=== PATIENT | female | born 1930 | race Caucasian/White ===

== ENCOUNTER 2020-08-13 17:11 | Emergency (ER) | payer MEDICARE ==
[~2020-08-13] VITALS: Ht 162.6 cm; Wt 62.3 kg
--- NOTE | 2020-08-13 17:54 | PHYS DOC ---
Past History Past Medical History: Arthritis, Hypertension General Adult EDM: Chief Complaint: CHEST PAIN HPI: HPI: ".. I was just in to see my doctor.. and they sent me down here.. " " They got all worried about my chest pain complaints..." Patient is a 89 year old female who presents with above hx and complaints of central chest pain and fatigue. Pt. has had symptoms off and on the last 5 d ays. Describes pain as pressure. Patient does have a history of hypertension and is unsure if she took her blood pressure meds today no history of travel or specific ill contacts. Normally follows with in [place], [place]. Patient describes currently the discomfort in center chest. Describes more of a dull ache in sharp pain. No history of trauma. No history of travel outside the [place] area. No history immunosuppression. No history specific ill contacts. Review of Systems: Review of Systems: Constitutional: Denies fever or chills Eyes: Denies change in visual acuity HENT: Denies nasal congestion or sore throat Respiratory: Denies cough or shortness of breath Cardiovascular: Complaints of chest pain GI: Denies abdominal pain, nausea, vomiting, bloody stools or diarrhea : Denies dysuria Musculoskeletal: Denies back pain or joint pain Integument: Denies rash Neurologic: Denies headache, focal weakness or sensory changes Endocrine: Denies polyuria or polydipsia Lymphatic: Denies swollen glands Psychiatric: Denies depression or anxiety Heart Score: HEART Score for Chest Pain: HEART Score for Chest Pain Response (Comments) Value History Moderately Suspicious 1 ECG Nonspecific Repolarizatio 1 Age > 65 2 Risk Factors 1 or 2 Risk Factors 1 Total 5 Risk Factors: Risk Factors: DM, Current or recent (<one month) smoker, HTN, HLP, family history of CAD, obesity. Risk Scores: Score 0 - 3: 2.5% MACE over next 6 weeks - Discharge Home Score 4 - 6: 20.3% MACE over next 6 weeks - Admit for Clinical Observation Score 7 - 10: 72.7% MACE over next 6 weeks - Early Invasive Strategies Family History: Family History: Noncontributory to presentation Current Medications: Current Meds: See nursing for home meds Allergies: Allergies: No known drug allergies Physical Exam: PE: Constitutional: Moderate acute distress, non-toxic appearance. [] HENT: Normocephalic, atraumatic, bilateral external ears normal, oropharynx moist, no oral exudates, nose normal. [] Eyes: PERRLA, EOMI, conjunctiva normal, no discharge. Glasses Neck: Normal range of motion, no tenderness, supple, no stridor. [] Cardiovascular:Heart rate regular rhythm, no murmur, PMI to the left Lungs & Thorax: Bilateral breath sounds equal apex on auscultation [] Abdomen: Bowel sounds normal, soft, no tenderness, no masses, no pulsatile masses. [] Skin: Warm, dry, no erythema, no rash. Poor turgor Back: No tenderness, no CVA tenderness. [] Extremities: No tenderness, no cyanosis, no clubbing, ROM intact, no edema. A rthritic changes. No cording appreciated Neurologic: Alert and oriented X 3, moves extremities on request, has distal sensory,, no focal deficits noted. [] Psychologic: Affect anxious but irritated, judgement normal, mood normal. [] EKG: EKG: My interpretation EKG shows a sinus rhythm at 75 bpm. No findings of acute STEMI with contralateral changes [] Radiology/Procedures: Radiology/Procedures: [][place] [address] IMAGING REPORT Signed PATIENT: RONAL SUAREZ ACCOUNT: [id number] : 1930 LOCATION: ER AGE: 89 SEX: F EXAM STATUS: REG ER ORD. PHYSICIAN: CELESTINA RANGEL DO REASON: cp PROCEDURE: PORTABLE CHEST 1V PORTABLE CHEST 1V History: Reason: cp / Spl. Instructions: / History: Comparison: None. Findings: No consolidation or pleural effusion. Normal heart size. No pneumothorax. Impression: 1. No acute cardiopulmonary process. Electronically signed by: Tayo Castelan DO (08/13/2020 7:47 PM) [facility] [place] DICTATED AND SIGNED BY: TAYO CASTELAN DO DATE: 08/13/201946 CC: JOHNATHAN CORTÉS MD; SANTA CHANG; CELESTINA RANGEL DO ~ Course & Med Decision Making: Course & Med Decision Making Pertinent Labs and Imaging studies reviewed. (See chart for details) Pt. presentation testing and treatment plan with Dr. Etienne. 1930 hrs. Advised patient need to be transferred to [facility] but would be happy to care for if no beds are available at [place]. Discussed admission with daughter and patient. Patient now requesting discharge 1999, does not want to be transferred, does not want to be admitted exhibits. Pt. UCAR capacity. Patient informed may return at any time to be transferred to [facility] this weekend. Patient advised to take a daily aspirin. This discussed also with daughter. Impression: 1. Chest Pain 2. Accelerated HTN 3. Elevated Creat 1.2 [] Dragon Disclaimer: Dragon Disclaimer: This electronic medical record was generated, in whole or in part, using a voice recognition dictation system. Departure Departure: Disposition: HOME/RESIDENCE PRIOR TO ADM Condition: STABLE Referrals: SANTA CHANG (PCP) Justification of Admission: Justification of Admission: Justification of Admission Dx: N/A Dragon Disclaimer This chart was dictated in whole or in part using Voice Recognition software in a busy, high-work load, and often noisy Emergency Department environment. It may contain unintended and wholly unrecognized errors or omissions. JOHNATHAN CORTÉS MD Aug 13, 2020 17:54
--- NOTE | 2020-08-13 18:00 | EKG ---
[address] [address] Test Date: 2020-08-13 Test Time: 17:48:10 Pat Name: RONAL SUAREZ Department: Room: Gender: F Principal Technical Specialist: DONNY : 1930 Requested By: CELESTINA RANGEL Order Number: [id number] Reading MD: Measurements Intervals [place] Rate: 75 P: 50 IA: 192 QRS: 21 QRSD: 74 T: 42 QT: 362 QTc: 407 Interpretive Statements SINUS RHYTHM NORMAL ECG RI6.02 No previous ECG available for comparison
[2020-08-13 18:19] LABS: BASO % 1 % (0-3); EOS # 0.1 x10^3/uL (0.0-0.7); EOS % 2 % (0-3); HEMATOCRIT 40.7 % (36.0-47.0); HEMOGLOBIN 13.7 g/dL (12.0-15.5); LYMPH # 1.5 x10^3/uL (1.0-4.8); LYMPH % 20 % (24-48); MEAN CORPUSCULAR HEMOGLOBIN 31 pg (25-35); MEAN CORPUSCULAR HGB CONC 34 g/dL (31-37); MEAN CORPUSCULAR VOLUME 93 fL (79-100); MONO # 0.5 x10^3/uL (0.0-1.1); MONO % 6 % (0-9); NEUT # 5.3 x10^3uL (1.8-7.7); NEUT % 71 % (31-73); PLATELET COUNT 232 x10^3/uL (140-400); RED BLOOD COUNT 4.38 x10^6/uL (3.50-5.40); RED CELL DISTRIBUTION WIDTH 14.2 % (11.5-14.5); WHITE BLOOD COUNT 7.4 x10^3/uL (4.0-11.0)
[2020-08-13 18:28] LABS: CALCIUM 9.3 mg/dL (8.5-10.1); CREATININE 1.2 mg/dL (0.6-1.0); GFR 42.4; POTASSIUM 4.3 mmol/L (3.5-5.1)
[2020-08-13 18:43] LABS: ALBUMIN 3.8 g/dL (3.4-5.0); ALBUMIN/GLOBULIN RATIO 1.1 (1.0-1.7); TOTAL BILIRUBIN 0.3 mg/dL (0.2-1.0); TOTAL PROTEIN 7.2 g/dL (6.4-8.2)
--- NOTE | 2020-08-13 19:50 | RAD ---
PORTABLE CHEST 1V History: Reason: cp / Spl. Instructions: / History: Comparison: None. Findings: No consolidation or pleural effusion. Normal heart size. No pneumothorax. Impression: 1. No acute cardiopulmonary process. Electronically signed by: Tayo Castelan DO (08/13/2020 7:47 PM) [facility] [place]
[2020-08-13 20:16] VITALS: BP 133/37
[2020-08-13] MEDS ORDERED: ASPIRIN 325 MG TABLET PO ONE (20:30)
== END 2020-08-13 20:25 | disposition left against medical advice (07) ==
LOC: ER 17:11
DX: R07.89 Other chest pain (principal); I10 Essential (primary) hypertension; R79.89 Other specified abnormal findings of blood chemistry; M19.90 Unspecified osteoarthritis, unspecified site
CPT/HCPCS: 36415; 71045; 80053; 80061; 83735; 83880; 84484; 85025; 85379; 85610; 85730; 93005; 99285